=== PATIENT | male | born 1960 | race Caucasian/White ===

== ENCOUNTER 2022-04-26 08:00 | Outpatient (CLI) | payer OTHER, SELFPAY ==
--- NOTE | 2022-04-26 08:00 | CRLHL7_ITS ---
For Patients: As a result of the Century Cures Act, medical imaging exams and procedure reports are released immediately into your electronic medical record. You may view this report before your referring provider. If you have questions, please contact your health care provider. HISTORY: 62-year-old male. Left hip pain. Left hip resurfacing arthroplasty in [address] [facility]. TECHNIQUE: 25.1 millicuries of [id number] was injected intravenously. Three phase images of the pelvis and hips were obtained. FINDINGS: The blood flow and blood pool images are unremarkable. The delayed images demonstrate abnormally increased uptake in the left acetabular region. This is suspicious for loosening. Photopenia in the left femoral head is consistent with the resurfacing arthroplasty. No other significant abnormalities are identified. IMPRESSION: There are findings suspicious for loosening of the acetabular component of the left hip arthroplasty. Dictated by Luis Jimenez MD @ 04/26/2022 12:34:45 PM (Electronically Signed)
--- NOTE | 2022-04-26 14:30 | MR_ITS ---
[address] [address] Phone:?[phone] Fax:?[phone] Referring Physician Information: Florencio Adams M.D. [id number] [facility] [address] Phone:?[phone] Fax:?[phone] Patient:Jamee Jacobs D.O.B:?1960 Sex:?Male Phone:?[phone] [facility] MRN:?[id number] Exam Date:?04/26/2022 ? EXAM: MRI EXAMINATION OF THE LEFT HIP CLINICAL INFORMATION: Male, 62 years old, with left hip pain. INDICATION: Evaluate for pseudocysts. PRIOR SURGERY: History of femoral head resurfacing. PLAIN FILMS: None available. COMPARISONS: No prior MRIs available. TECHNICAL INFORMATION: Using a 1.5T MR scanner and a localizing surface coil: coronals: PD, T2 sagittals: PD, STIR axials: T1, PD, STIR, T2FS coronals: T1, STIR of pelvis and hips SEDATION: None CONTRAST: None FINDINGS: Hip joint: Status post femoral head resurfacing. The associated metal susceptibility artifact largely obscures the surrounding structures. However, there is no definitely abnormal signal within the proximal femur to indicate loosening or osteolysis. Small left hip joint effusion with a 9 x 16 x 14 mm posterior inferior ganglion cyst (coronal STIR series 2 image 24 and sagittal STIR series 12 image 20). A 3.3 x 2.2 x 3.9 cm ganglion cyst arises from the anterior aspect of the right hip joint (axial STIR series 5 image 21 and coronal STIR series 10 image 11). Proximal femur: No periprosthetic fracture or osseous stress reaction. Acetabulum: The acetabulum is largely obscured by the metal artifact. However, there is no definite abnormal bone marrow signal. Pelvis osseous structures: Sacral ala and sacroiliac joints: No stress/insufficiency fractures or marrow edema/pathology. No demonstrable sacroiliitis. Pubic rami and pubic symphysis: No stress/insufficiency fractures or marrow edema/pathology. Normal alignment without hypertrophy or evidence of ongoing osteitis pubis. Myotendinous structures: Gluteus abductors: Mild to moderate right gluteus minimus insertional tendinopathy, without tear (axial STIR series 5 images 17-20). The left abductor tendons are unremarkable. The right gluteus medius is unremarkable. Adductors: No demonstrable tendinopathy or strain/tear. Hamstrings: Mild bilateral common hamstrings tendinopathy, without tear. Flexors: Intact iliopsoas and rectus femoris, without strain/tear. External rotators: Intact, without demonstrable ischiofemoral impingement. Gluteal aponeurotic fascia and IT band: Unremarkable. Bursae: No demonstrable trochanteric, iliopsoas, or iliopectineal bursitis. Intrapelvic contents: Free fluid: No free fluid seen within the pelvis. Pelvic viscera: No discrete intrapelvic mass is identified. Lymph nodes: No lymphadenopathy by MRI size criteria. Neurovascular structures: No discrete cyst, mass or other compression upon the portions visualized of sciatic or femoral nerves. Lumbar spine: The visualized portions of the lower lumbar spine are unremarkable. IMPRESSION: 1. Status post left femoral head resurfacing. No hardware-related complication. 2. Small left hip joint effusion with a 9 x 16 x 14 mm posteroinferior ganglion cyst. 3. Approximately 3.3 x 2.2 x 3.9 cm ganglion cyst arising from the anterior aspect of the right hip joint. 4. Mild-moderate right gluteus minimus tendinopathy, without tear. 5. Mild bilateral common hamstrings tendinopathy, without tear. 5. No fracture or osseous stress reaction. BC Electronically signed on 04/26/2022 2:31:00 PM by Timothy Zhagn M.D.
== END 2022-04-26 08:01 | disposition home or self-care (01) ==
LOC: NM 08:01
PROVIDERS: PCP Family Medicine; Visit Provider Orthopaedic Surgery
DX: M25.552 Pain in left hip (principal); M25.452 Effusion, left hip; M67.452 Ganglion, left hip
CPT/HCPCS: 73721; 78315; A9503

== ENCOUNTER 2022-07-23 15:16 | Outpatient (CLI) | payer OTHER, SELFPAY ==
[2022-07-23 11:30] LABS: Albumin* 4.2 g/dL (3.3-5.0); Chloride* 106 mmol/L (96-114)
[2022-07-23 11:31] LABS: Potassium* 4.4 mmol/L (3.6-5.1); Sodium* 138 mmol/L (135-149)
[2022-07-23 11:33] LABS: Carbon Dioxide* 25 mmol/L (20-32); Cholesterol* 135 mg/dL (90-199); Creatinine* 0.9 mg/dL (0.5-1.5); Estimated Glomerular Filt Rate 97 ml/min
[2022-07-23 11:34] LABS: Alanine Aminotransferase* 29 U/L (4-50); Alkaline Phosphatase* 84 U/L (40-150); Aspartate Amino Transferase* 25 U/L (12-35); Bilirubin Total* 0.8 mg/dL (0.1-1.5); Blood Urea Nitrogen* 15 mg/dL (7-30); Calcium* 9.4 mg/dL (8.4-10.6); Glucose* 189 mg/dL (60-115); Total Protein* 6.8 g/dL (6.0-8.3); Triglycerides* 101 mg/dL (40-149)
[2022-07-23 11:35] LABS: HDL Cholesterol* 42 mg/dL (>=40); LDL Cholesterol Calculated 73 mg/dL (<100)
[2022-07-23 11:46] LABS: Creatinine Urine 172.7 mg/dL
[2022-07-23 11:51] LABS: Microalbumin Creatinine Ratio 0 mg/g (0-30); Microalbumin Urine 1 mg/dL
== END 2022-07-23 15:17 | disposition home or self-care (01) ==
PROVIDERS: PCP Family Medicine; Visit Provider Family Medicine
DX: Z00.00 Encounter for general adult medical examination without abnormal findings (principal); E11.9 Type 2 diabetes mellitus without complications; E78.5 Hyperlipidemia, unspecified; I10 Essential (primary) hypertension; I25.10 Atherosclerotic heart disease of native coronary artery without angina pectoris
CPT/HCPCS: 80053; 80061; 82043; 82570

== ENCOUNTER 2022-10-07 20:39 | Emergency (ER) | payer OTHER, SELFPAY ==
[2022-10-07 20:46] VITALS: BP 176/95; PULSE 58; RESP 16; TEMP 36.2; O2SAT 98
--- NOTE | 2022-10-07 20:59 | CRLHL7_ITS ---
For Patients: As a result of the Cures Act, medical imaging exams and procedure reports are released immediately into your electronic medical record. You may view this report before your referring provider. If you have questions, please contact your health care provider. INDICATION: Trauma. TECHNIQUE: AP, sunrise and lateral views of the right knee. COMPARISON: None provided. IMPRESSION: Prepatellar soft tissue swelling. Large joint effusion. Low riding patella (patella baja) is noted. These findings can be seen with a quadriceps tendon injury, and should be correlated clinically. Prior total knee arthroplasty. Hardware is appropriately seated with no radiographic findings to suggest hardware loosening. No acute fracture. Dictated by Andreas Mcdonald MD @ 10/07/2022 9:41:14 PM Dictated by: Andreas Mcdonald MD @ 10/07/2022 21:41:19 (Electronically Signed)
--- NOTE | 2022-10-09 13:00 | ED_ITS ---
HPI - Extremity Injury (Lower) General Chief Complaint: Extremity Pain/Injury, Lower Stated Complaint: Leg Injury Time Seen by Provider: 10/07/22 20:56 History of Present Illness HPI Narrative: 62-year-old man presenting to the emergency department about an hour after slipping on the ice and sustaining a hyperflexion injury to his right knee. He works in the OR and is particularly concerned as he has seen a similar injury and what sounds like comminuted fracture of the distal femur. He saw this in the setting of knee replacement and himself has had both knees done some years back. He has noticed significant swelling and pain. Is able to bear weight only. No other injuries sustained. Takes plavix. Related Data Home Medications Medication Instructions Recorded Confirmed aspirin 81 mg tablet,delayed 81 mg PO QDAY 04/16/22 10/08/22 release multivitamin 1 tab PO QDAY 04/16/22 10/08/22 flash glucose scanning reader 06/11/22 10/08/22 (T[place] Sandrine 14 Day [place]) Lactobacillus cap PO 10/07/22 10/08/22 acidophil,plantar-Bifido no.7 15 billion cell capsule calcium carbonate 500 mg calcium 500 mg PO DAILY 10/07/22 10/08/22 (1,250 mg) chewable tablet (Calcium 500) cholecalciferol (vitamin D3) 25 1,000 unit PO DAILY 10/07/22 10/08/22 mcg (1,000 unit) capsule (Vitamin D3) clopidogrel 75 mg tablet 75 mg PO DAILY 10/07/22 10/08/22 metformin 500 mg tablet 500 mg PO BID 10/07/22 10/08/22 metoprolol succinate 50 mg 50 mg PO DAILY 10/07/22 10/08/22 tablet,extended release 24 hr nitroglycerin 0.4 mg sublingual 0.4 mg sublingual Q5M PRN 10/07/22 10/08/22 tablet omega-3 fatty acids-fish oil 360 1 cap PO DAILY 10/07/22 10/08/22 mg-1,200 mg capsule (Fish Oil) vitamin B complex 1 tab PO DAILY 10/07/22 10/08/22 vitamin E mixed 200 unit tablet unit PO 10/07/22 10/08/22 Previous Rx's Medication Instructions Recorded flash glucose sensor (GetIntent #1 ea 10/27/22 Sandrine 14 Day Sensor kit) losartan 50 mg tablet 50 mg PO QDAY #90 tabs 08/01/22 atorvastatin 80 mg tablet 80 mg PO QHS #90 tabs 08/02/22 Allergies Allergy/AdvReac Type Severity Reaction Status Date / Time No Known Drug Allergies Allergy Unverified 10/08/22 13:03 Review of Systems Status of ROS: Reports: 6 or more systems reviewed and unremarkable except as noted in History and below [facility] Medical History Atrial fibrillation Hypertension NSTEMI (non-ST elevated myocardial infarction) Type 2 diabetes mellitus Surgical History H/O hernia repair History of bilateral inguinal hernia repair History of total left hip arthroplasty (~2004) History of total left knee replacement (07/26/20) History of total right knee replacement (08/21/16) S/P left knee arthroscopy (09/07/13) Family History Other FHx: colonic polyps Social History (Reviewed 05/14/22 @ 14:32 by Kourtney Cee ([facility]), [facility]) Smoking Status: Never smoker Do you use any of these nicotine containing products: None Second hand tobacco smoke exposure: No How often do you have a drink containing alcohol: monthly or less AUDIT-C Alcohol total score: 1 Non-prescribed substance use: denies use Little interest or pleasure in doing things: not at all Feeling down, depressed, or hopeless: not at all Exam Narrative: Exam Narrative: Pleasant. Breathing easily. Clearly uncomfortable but not demonstrating tremendously. Head appears atraumatic. There is markedly swollen/effusion surrounding the right knee. Generally tense. Able to flex to about 30? at which point causes much more pain. Is weak and with pain to extension of the knee. Pain also with attempts at varus and valgus stressors. Just generally tender. I do appreciate a depression at the distal femur/upper knee which I am concerned is consistent with quadricep or supra-patellar tendon rupture. Const: Documenting provider has reviewed patient's vital signs: yes Course Vital Signs Vital signs: Initial Vital Signs Temperature 97.1 F L 10/07/22 20:46 Temperature Source Temporal Artery Scan 10/07/22 20:46 Pulse Rate 58 L 10/07/22 20:46 Pulse Rhythm 10/07/22 20:46 Respiratory Rate 16 10/07/22 20:46 Blood Pressure 176/95 H 10/07/22 20:46 Blood Pressure Mean 122 10/07/22 20:46 Blood Pressure Position Semi-Fowlers 10/07/22 20:46 Pulse Oximetry 98 10/07/22 20:46 Oxygen Delivery Method 10/07/22 20:46 Vital Signs Temperature 97.1 F L 10/07/22 20:46 Pulse Rate 58 L 10/07/22 20:46 Respiratory Rate 16 10/07/22 20:46 Blood Pressure 176/95 H 10/07/22 20:46 Pulse Oximetry 98 10/07/22 20:46 Oxygen Delivery Method 10/07/22 20:46 Temperature 97.1 F L 10/07/22 20:46 Pulse Rate 58 L 10/07/22 20:46 Respiratory Rate 16 10/07/22 20:46 Blood Pressure 176/95 H 10/07/22 20:46 Pulse Oximetry 98 10/07/22 20:46 Oxygen Delivery Method 10/07/22 20:46 MDM - Extremity Injury (Lower) MDM Narrative Medical decision making narrative: Mr. Jacobs inquires about potential CT; I think that given mechanism, X- rays are appropriate and CT further complicated by likely scatter artifact. I would anticipate MRI otherwise; not available at this time. Xrays of the right knee reviewed by me are notable for effusion and somewhat lower riding patella. hardware appears intact. No apparent fracture. discussed case with orthpaedics insulation sprayer to arrange follow up. has own crutches. placed in knee immobilizer. understandably concerned about pain especially with efforts to sleep tonight. Discharge Plan Discharge Clinical Impression: Effusion of knee, Acute knee pain, Rupture of distal quadriceps muscle Patient Disposition: Home w/ Parent or Adult Condition: Stable Additional Instructions: I would wear this knee immobilizer and allow for toe-touch until seen by Orthopedics. Can remove immobilizer though for icing if you like. Can take ibuprofen up to 800 mg per dose or up to 1000 mg of acetaminophen per dose. Alternative to the ibuprofen could be up to 500 mg of naproxen 2 times daily. If needed, [place] from [facility]. Remember that each tablet of [place] contains 325 mg of acetaminophen Expect a call by noon tomorrow from Ortho. If you do not hear from them I would reach out to them at [phone]; though I suspect maybe you maybe have another way of reaching them :) Prescriptions: No Action (DME) FreeStyle Sandrine 14 Day [place] Misc See Rx Instructions .Route Rx Instructions: As directed multivitamin Tablet 1 tab PO QDAY aspirin 81 mg tablet,delayed release (DR/EC) 81 mg PO QDAY losartan 50 mg tablet 50 mg PO QDAY Qty: 90 3RF clopidogrel 75 mg tablet 75 mg PO DAILY metformin 500 mg tablet 500 mg PO BID metoprolol succinate 50 mg tablet extended release 24 hr 50 mg PO DAILY nitroglycerin 0.4 mg tablet, sublingual 0.4 mg sublingual Q5M PRN vitamin E mixed 200 unit tablet PO vitamin B complex Tablet 1 tab PO DAILY L.acidophil-L.plantar-Bifido 7 15 billion cell capsule PO calcium carbonate [Calcium 500] 500 mg calcium (1,250 mg) tablet,chewable 500 mg PO DAILY omega-3 fatty acids-fish oil [Fish Oil] 360-1,200 mg capsule 1 cap PO DAILY cholecalciferol (vitamin D3) [Vitamin D3] 25 mcg (1,000 unit) capsule 1,000 unit PO DAILY (DME) FreeStyle Sandrine 14 Day Sensor Kit See Rx Instructions .Route Qty: 1 2RF Rx Instructions: As directed atorvastatin 80 mg tablet 80 mg PO QHS Qty: 90 3RF Follow Up/Referrals: Arjun Guerrier MD [Primary Care Provider] - Stand Alone Forms: [facility] Info Instructions
== END 2022-10-07 22:00 | disposition home or self-care (01) ==
PROVIDERS: Emergency Provider Family Medicine; PCP Family Medicine
DX: M25.461 Effusion, right knee (principal); S76.101A Unspecified injury of right quadriceps muscle, fascia and tendon, initial encounter
CPT/HCPCS: 73562; 99283

== ENCOUNTER 2022-10-09 08:24 | Outpatient (CLI) | payer OTHER, SELFPAY ==
--- NOTE | 2022-10-09 09:40 | CRLHL7_ITS ---
For Patients: As a result of the Century Cures Act, medical imaging exams and procedure reports are released immediately into your electronic medical record. You may view this report before your referring provider. If you have questions, please contact your health care provider. CLINICAL HISTORY: : MSK right lateral quad insertion COMPARISON: Radiographs 10/07/2022, 02/21/2017 TECHNIQUE: Real-time ultrasound imaging of right quadriceps tendon with imaging documentation. Imaging of the left quadriceps tendon also performed. Scanning was performed by both the technologist and the radiologist. FINDINGS: Postoperative changes of right total knee arthroplasty. Chronic heterotopic calcifications are present above the right patella. There is a joint effusion within the lateral joint space. Soft tissue swelling is present. The quadriceps tendon is intact without partial or full-thickness tear. Mild scar tissue noted associated with the quadriceps tendon. IMPRESSION: Intact quadriceps tendon without partial or full-thickness tear. Right knee effusion. Dictated by Cornelio Eddy MD @ 10/09/2022 11:09:21 AM (Electronically Signed)
== END 2022-10-09 08:25 | disposition home or self-care (01) ==
LOC: US 08:25
PROVIDERS: PCP Family Medicine; Visit Provider Orthopaedic Surgery
DX: M25.461 Effusion, right knee (principal); S89.91XA Unspecified injury of right lower leg, initial encounter; Z96.651 Presence of right artificial knee joint
CPT/HCPCS: 76882

== ENCOUNTER 2023-01-04 12:14 | Outpatient (CLI) | payer OTHER, SELFPAY | END 2023-01-04 12:15 | disposition home or self-care (01) | LOC: NFLDREF 12:15 | PROVIDERS: PCP Family Medicine; Visit Provider Family Medicine | DX: I10 Essential (primary) hypertension (principal); Z79.899 Other long term (current) drug therapy | CPT/HCPCS: 80048 ==

== ENCOUNTER 2023-08-14 07:48 | Outpatient (CLI) | payer OTHER, SELFPAY | END 2023-08-14 07:49 | disposition home or self-care (01) | LOC: NFLDREF 08-15 12:04 | PROVIDERS: PCP Family Medicine; Referring Provider Family Medicine; Visit Provider Family Medicine | DX: Z00.00 Encounter for general adult medical examination without abnormal findings (principal); E11.9 Type 2 diabetes mellitus without complications; I10 Essential (primary) hypertension; E78.5 Hyperlipidemia, unspecified; E66.9 Obesity, unspecified; I48.91 Unspecified atrial fibrillation; I25.10 Atherosclerotic heart disease of native coronary artery without angina pectoris | CPT/HCPCS: 80053; 80061; 82043; 82570 ==

== ENCOUNTER 2024-03-23 13:00 | Outpatient (CLI) | payer OTHER, SELFPAY | END 2024-03-23 13:01 | disposition home or self-care (01) | LOC: NFLDREF 03-25 06:29 | PROVIDERS: PCP Family Medicine; Referring Provider Family Medicine; Visit Provider Family Medicine | DX: I10 Essential (primary) hypertension (principal) | CPT/HCPCS: 80048 ==

== ENCOUNTER 2024-08-17 07:45 | Outpatient (CLI) | payer OTHER, SELFPAY | END 2024-08-17 07:46 | disposition home or self-care (01) | LOC: NFLDREF 16:52 | PROVIDERS: PCP Family Medicine; Referring Provider Family Medicine; Visit Provider Family Medicine | DX: E11.65 Type 2 diabetes mellitus with hyperglycemia (principal); I10 Essential (primary) hypertension; E78.5 Hyperlipidemia, unspecified; Z79.84 Long term (current) use of oral hypoglycemic drugs | CPT/HCPCS: 80053; 80061; 82043; 82570 ==